=== PATIENT | female | born 1965 | race African-American/Black ===

== ENCOUNTER → 2020-01-09 | Outpatient (CLI) | payer OTHER ==
--- NOTE | 2020-01-09 16:30 | Diagnostic Imaging Report ---
Bone Scan, delayed phase INDICATION: Breast cancer diagnosed in July 2019. Has low back pain. ICD placed in 2019. COMPARISON: None available REPORT: Approximately 3 hours following intravenous administration of 27.5 mCi of Tc-99m MDP, delayed total body images in the anterior and posterior projections and selected spot images were obtained. Numerous foci of increased tracer activity are seen in the skull bilaterally, in multiple levels of the thoracolumbar spine, Manubrium, sternal body, clavicles, ribs anteriorly and posteriorly, sacrum, bilateral jonnathan and right ischial acetabulum. Diffusely increased tracer activity is seen in the right breast consistent with soft tissue inflammatory process related to neoplasm. Photopenic defect noted in the let upper chest due to patient's ICD device. No abnormal accumulation of tracer is seen in the urinary tract. IMPRESSION: Widespread metastatic bone disease involving the skull, spine, thorax and pelvis. Signed by: Dr. Jacqui Andrews M.D. on 01/09/2020 4:26 PM
== END ==
LOC: NM 08:02
PROVIDERS: ATTEND Radiology Body Imaging
DX: M54.5 Low back pain (principal); C50.911 Malignant neoplasm of unspecified site of right female breast
CPT/HCPCS: 78306; A9503